=== PATIENT | female | born 1965 | race Caucasian/White ===

== ENCOUNTER → 2019-12-23 10:05 | Outpatient (CLI) | payer MEDICARE, MEDICAID, SELFPAY | PROVIDERS: PCP Family Medicine; Referring Provider Family Medicine; Visit Provider Family Medicine | DX: Z20.828 Contact with and (suspected) exposure to other viral communicable diseases (principal) | CPT/HCPCS: 87635; G2023; U0003 ==

== ENCOUNTER → 2020-01-09 08:32 | Outpatient (CLI) | payer MEDICARE, MEDICAID, SELFPAY ==
--- NOTE | 2020-01-09 08:42 | RAD_ITS ---
STUDY: AIR-CONTRAST BARIUM SWALLOW REASON FOR EXAM: Female, 54 years old. PT HAS FEELING OF SOMETHING STUCK IN UPPER THROAT, HAS BEEN ONGOING SINCE -- PT HAD THYROID SWELLING IN , BUT HAS SINCE RESOLVED, BUT SENSATION OF FOOD BEING STUCK IS STILL THERE RADIATION DOSAGE (If Supplied By Facility): CTDIvol = ( ) mGy, DLP = ( ) mGycm. Individualized dose optimization techniques were used for this CT.? FLUOROSCOPY TIME (if supplied): ( 1:08 ) minutes/seconds TECHNIQUE: Air-contrast COMPARISON: None. FINDINGS: Swallowing was initiated normally. No nasopharyngeal reflux or aspiration. No Zenker''s diverticulum noted on the lateral view. Normal peristaltic activity noted in the proximal mid and distal esophagus. There was evidence of mild GE reflux but no intraesophageal reflux or hiatal hernia noted. 13 mm barium pill passed through the esophagus without difficulty. RAD/Esophagus Dual Contrast IMPRESSION: GE reflux Electronically Signed: Yandel Jerez MD at 9:41 EDT , Service support ,
== END ==
PROVIDERS: PCP Family Medicine; Referring Provider Nurse Practitioner Adult Health; Visit Provider Nurse Practitioner Adult Health
DX: R09.89 Other specified symptoms and signs involving the circulatory and respiratory systems (principal)
CPT/HCPCS: 74221

== ENCOUNTER → 2021-01-11 09:54 | Outpatient (CLI) | payer MEDICARE, MEDICAID, SELFPAY ==
--- NOTE | 2021-01-11 11:22 | NEURO_ITS ---
NCS and/or EMG Patient Report Ordering Doctor: Augusta Phillips DATE OF SERVICE: 01/11/21 Indication: The patient reports tingling, burning and numbness on the dorsum of the left foot extending into digits 3-5. There is no associated weakness or radicular back pain. Of note, a Tinel sign was easily elicited at the fibular neck. Findings: Nerve conduction studies were performed in the left lower extremity. Some comparisons were made on the right side. The left peroneal motor study recording the extensor digitorum brevis showed a normal amplitude, normal distal latency and normal conduction velocity. No conduction block or focal slowing was present across the fibular neck. The left tibial motor study recording the abductor hallucis brevis showed a normal amplitude, normal distal latency and normal conduction velocity. The left sural sensory response showed a normal amplitude and conduction veloc ity. The left superficial peroneal sensory response showed a slightly reduced amplitude and normal conduction velocity. The left superficial peroneal sensory response showed a normal amplitude and conduction velocity, and was asymmetric with the right. Needle EMG of the left lower extremity and lumbosacral paraspinal muscles was performed. No denervation was present in any muscle. All motor unit morphology, activation, and recruitment patterns were normal. Impression: This is an abnormal study. There is electrophysiologic evidence of consistent with a non-localizing, left superficial peroneal neuropathy. A neuromuscular ultrasound of the peroneal nerve could be considered to aid in localization and investigate potential etiologies. In addition, there is no electrophysiologic evidence of a sciatic neuropathy, lumbosacral plexopathy or radiculopathy in the left lower extremity. Stephen Khalil D.O.
== END ==
PROVIDERS: PCP Family Medicine; Referring Provider Physician Assistant; Visit Provider Physician Assistant
DX: R20.0 Anesthesia of skin (principal); M79.672 Pain in left foot
CPT/HCPCS: 95886; 95909

== ENCOUNTER 2021-09-20 23:43 | Emergency (ER) | payer MEDICARE, MEDICAID, SELFPAY ==
[2021-09-20 23:43] VITALS: BP 124/98; PULSE 83; RESP 16; TEMP 36.1; O2SAT 98; BMI 25.3
[2021-09-21] MEDS: Ondansetron 4 MG/2 ML Vial IV (00:53)
[2021-09-21 00:56] LABS: Absolute Lymphocyte Count 2.82 X10^3/uL (0.83-4.51); Absolute Neutrophil Count 3.3 X10^3/uL (2.0-7.7); Basophil# 0.04 X10^3/uL; Basophil% 0.6 % (0-1); Eosinophils% 1.5 % (0-5); Hematocrit 39.1 % (37-47); Hemoglobin 13.9 g/dL (12.0-15.0); Lymphocyte # 2.82 X10^3/ul (0.83-4.51); Lymphocyte % 41.7 % (19-41); Mean Corp Hgb Conc 35.5 g/dL (32-36); Mean Corpuscular Hgb 32.2 pg (27.0-32.0); Mean Corpuscular Volume 90.5 fL (81-99); Mean Platelet Vol. 10.7 fl (6.2-12.0); Monocyte# 0.48 X10^3/uL; Monocyte% 7.1 % (0-10); NRBC Flagged by Analyzer 0 % (0-5); Neutrophil # 3.31 X10^3/uL (2.7-7.7); Platelet Count 203 K/mm3 (150-450); RBC Distribution Width CV 12.5 % (11.6-14.6); RBC Distribution Width SD 41.1 fl (35.1-43.9); Red Blood Count 4.32 M/mm3 (4.2-5.4); White Blood Count 6.8 K/mm3 (4.4-11.0)
[2021-09-21] MEDS: Morphine 4 MG/ML Syringe IV ×2 (00:56→02:06)
[2021-09-21] MEDS: Dicyclomine 20 MG/2 ML Vial IM (00:57)
[2021-09-21] MEDS: 0.9% Normal Saline 1,000 ML 999 ML IV (00:59)
[2021-09-21 01:12] LABS: AST(SGOT) 15 U/L (15-37); Alanine Aminotransfer ALT/SGPT 27 U/L (13-56); Albumin, Serum 3.8 g/dL (3.2-5.0); Alkaline Phosphatase 105 U/L (45-117); Anion Gap 5 (5-15); BUN 9 mg/dL (7-18); BUN/Creat Ratio 8.2 RATIO (10-20); Bilirubin, Direct 0.12 mg/dL (0.00-0.30); Chloride 109 mmol/L (98-107); EST Glomerular Filtration Rate 55 mL/min (>60); Est Glom Filt Rate - Afr Amer 67 mL/min (>60); Estimated Creatinine Clearance 57.52 ml/min; Globulin 3.4 g/dL (2.2-4.2); Glucose 147 mg/dL (74-106); Lipase 66 U/L (73-393); Potassium 3.5 mmol/L (3.5-5.1); Protein, Total 7.2 g/dL (6.4-8.2); Sodium Level 142 mmol/L (136-145)
[2021-09-21 01:19] LABS: Mucous, Urine 0 SEEN /hpf (<or=2+); Squamous Epithelial Cells - UA 0 SEEN /hpf (5-10)
[2021-09-21 01:20] LABS: Color, Urine Yellow (Yellow); Glucose, Dipstick Normal (Normal); Ketone-Dipstick Negative (Negative); Leukocyte Esterase-Dipstick 25 /ul (Negative); Nitrite-Dipstick Negative (Negative); Occult Blood-Urine 10 /ul (Negative); Protein-Dipstick 15 mg/dl (Negative); Specific Gravity, Urine 1.015 (1.002-1.030); Urine Bilirubin Dipstick Negative (Negative); Urine Clarity Clear (Clear); Urine Urobilinogen Normal (Normal)
[2021-09-21 01:28] LABS: Bacteria RARE /hpf (None Seen); Red Blood Cells-Urine 0-5 SEEN /hpf (0-5); White Blood Cells 0-5 SEEN /hpf (0-5)
--- NOTE | 2021-09-21 01:59 | CT_ITS ---
STUDY: CT ABDOMEN AND PELVIS WITH CONTRAST REASON FOR EXAM: Female, 55 years old. LLQ pain RADIATION DOSAGE (If Supplied By Facility): CTDIvol = ( 13.92 ) mGy, DLP = ( 873.38 ) mGycm TECHNIQUE: Transaxial images were obtained from the dome of the diaphragm to the symphysis pubis without oral contrast. IV 100mL Isovue-300 was administered. Sagittal and coronal images were reconstructed. Individualized dose optimization techniques were used for this CT. COMPARISON: None. FINDINGS: Groundglass opacities at the lung bases. The visualized portions of the heart are within normal limits. Normal liver. Normal gallbladder and extrahepatic biliary system. Normal spleen. Normal pancreas. Normal bilateral adrenal glands. Normal right kidney. Normal left kidney. Normal visualized stomach. Normal small intestine. Scattered colonic diverticulosis without discrete evidence of acute diverticulitis. Air-fluid levels in the nondilated colon. The appendix is visualized and appears normal. Mild atherosclerotic calcifications. Normal inferior vena cava. Normal retroperitoneum. Normal urinary bladder. Status post hysterectomy Normal abdominal wall. Normal osseous structures. CT/Abdomen/Pelvis W IV Cont ONLY IMPRESSION: 1. Air-fluid levels in the nondilated colon, suggestive of rapid transit state or diarrhea. 2. Scattered colonic diverticulosis without discrete evidence of acute diverticulitis. 3. Groundglass opacities at the lung bases, may be due to expiratory phase or infectious/inflammatory changes. Electronically Signed: Charles Franco MD at 2:40 EDT ,
--- NOTE | 2021-09-21 02:58 | EDS_ITS ---
HPI History of Present Illness Chief Complaint: Abd Pain Narrative Narrative: Patient is a 55-year-old female who states that over the past few hours she has noticed some pain in her lower abdomen. She states there has been some loose stool associated with this. She denies any fevers chills injury or excessive activity. She states she was told she has diverticulosis and has concerned that she may have an infection at this time and therefore comes in for evaluation [facility] Medical History (Updated 09/21/21 @ 02:[address] Modesto Soares, DO) Carpal tunnel syndrome Home Medications amitriptyline 50 mg PO DAILY 10/23/13 [History Last Taken 04/24/14] triazolam 0.5 mg ORAL QHS PRN PRN 10/23/13 [History Last Taken 04/24/14] oxycodone-acetaminophen 1 tab PO DAILY PRN PRN 09/20/21 [History Last Taken Unknown] ondansetron 4 mg PO TID PRN #21 tab 09/21/21 [Rx Last Taken Unknown] Allergy/AdvReac Type Severity Reaction Status Date / Time No Known Allergies Allergy Verified 09/20/21 23:45 Surgical History (Updated 09/20/21 @ 23:57 by Soraya Mesa) S/P removal of lung Social History Smoking Status: Never smoker ROS ROS ED Constitutional Constitutional ED: Denies chills or fever(s) ENT ENT ED: Denies sore throat Cardiovascular Cardiovascular: Denies chest pain Respiratory/Chest Respiratory/Chest: Denies cough or dyspnea Gastrointestinal Gastrointestinal: Reports abdominal pain, diarrhea and nausea; Denies vomiting Genitourinary Genitourinary ED: Denies dysuria or hematuria Musculoskeletal Musculoskeletal: Denies back pain or myalgias Integumentary Denies rash Neurologic Neurologic: Denies headache(s) Hematologic/Lymphatic Hematologic/Lymphatic: Denies easy bleeding or easy bruising EXAM Physical Exam Const Vital Signs: 09/20/21 23:43 09/21/21 03:13 Temperature 96.9 F L Temperature Source Temporal Pulse Rate 83 84 Respiratory Rate 16 16 Blood Pressure 124/98 H 116/82 H Blood Pressure Mean 106 Pulse Ox 98 98 Oxygen Delivery Method Room Air Positive well nourished and well developed General Appearance ED: well developed HEENT Reports dry mucous membranes Mouth ED: Yes dry mucous membranes Mouth: dry mucous membranes Eyes PERRL and EOMs intact bilaterally Neck supple Resp normal respiratory effort and clear to auscultation bilaterally Cardio regular rate and regular rhythm Rate: other Other Details: Radial pulses are +2-4 bilaterally are equal and symmetric GI non-distended GI Narrative: Abdomen is soft and nondistended with hyperactive bowel sounds. There is pain with palpation in the left lower quadrant but no voluntary guarding or rigidity. No pulsatile mass or fluid wave Palpation: soft Back/Spine no CVA tenderness Extremity normal to inspection Neuro oriented x3 and CN's II-XII intact bilaterally Sensorium / Orientation: alert Motor Exam: strength 5/5 throughout Psych mental status grossly normal Skin no rashes or lesions noted Skin Narrative: No overlying soft tissue changes to suggest trauma or infection MDM MDM MDM Narrative Medical decision making narrative: Patient presented to the ER afebrile with a soft nonsurgical abdomen. Basic labs were obtained secondary to complaint of abdominal pain but I did not feel the need for an emergent CT scan based on her vital signs and physical exam. Lab work revealed no clinically significant findings but on reevaluation patient was still having persistent pain in the left lower quadrant. Therefore a CT scan was added. This showed some fluid- filled intestine in the left lower quadrant consistent with her report of diar diana and pain. However there is no perforation or obstruction. On reevaluation she now reports resolution of her pain and her abdomen remains soft and nonsurgical. Therefore at this time I do not feel there is need for surgery consult or admission as her work-up is negative and her pain resolved. Patient replaced on symptomatic medications and is otherwise safe for discharge. Lab Data Attestation: I reviewed the patient's lab results. Labs: Laboratory Results - last 24 hr 09/21/21 09/21/21 09/21/21 00:00 00:00 01:15 WBC 6.8 RBC 4.32 Hgb 13.9 Hct 39.1 MCV 90.5 MCH 32.2 H MCHC 35.5 RDW Std Deviation 41.1 RDW Coeff of Maritza 12.5 Plt Count 203 MPV 10.7 Immature Gran % (Auto) 0.100 Neut % (Auto) 49.0 Lymph % (Auto) 41.7 H [place] % (Auto) 7.1 Eos % (Auto) 1.5 Baso % (Auto) 0.6 Absolute Neuts (auto) 3.3 Absolute Lymphs (auto) 2.82 Nucleated RBC % 0 Sodium 142 Potassium 3.5 Chloride 109 H Carbon Dioxide 28.0 Anion Gap 5 BUN 9 Creatinine 1.10 H Estim Creat Clear Calc 57.52 Est GFR (MDRD) Af Amer 67 Est GFR (MDRD) Non-Af 55 L BUN/Creatinine Ratio 8.2 L Glucose 147 H Calcium 9.0 Total Bilirubin 0.20 Direct Bilirubin 0.12 AST 15 ALT 27 Alkaline Phosphatase 105 Total Protein 7.2 Albumin 3.8 Globulin 3.4 Lipase 66 L Urine Color Yellow Urine Clarity Clear Urine pH 5.0 Ur Specific [place] 1.015 Urine Protein 15 H Urine Glucose (UA) Normal Urine Ketones Negative Urine Occult Blood 10 H Urine Nitrite Negative Urine Bilirubin Negative Urine Urobilinogen Normal Ur Leukocyte Esterase 25 H Urine RBC 0-5 SEEN Urine WBC 0-5 SEEN Ur Squamous Epith Cells 0 SEEN Urine Bacteria RARE Urine Mucus 0 SEEN Radiography Diagnostic Testing: Clinical Impression(s) from Imaging Studies Abdomen/Pelvis CT 09/21/21 01:59 IMPRESSION: 1. Air-fluid levels in the nondilated colon, suggestive of rapid transit state or diarrhea. 2. Scattered colonic diverticulosis without discrete evidence of acute diverticulitis. 3. Groundglass opacities at the lung bases, may be due to expiratory phase or infectious/inflammatory changes. Electronically Signed: Charles Franco MD at 2:40 EDT , Discharge Plan Triage Chief Complaint: Abd Pain ED Provider: Modesot Soares Dx/Rx/DC Orders Clinical Impression: Nonspecific abdominal pain Instructions: ED Abdominal Pain Unkn Cause Fem, Viral Gastroenteritis Prescriptions: New ondansetron 4 mg tablet,disintegrating 4 mg PO TID PRN (Reason: nausea and vomiting) Qty: 21 RF: 0 No Action triazolam 0.25 MG tablet 0.5 mg ORAL QHS PRN PRN (Reason: Insomnia) RF: 0 amitriptyline 50 MG tablet 50 mg PO DAILY RF: 0 oxycodone-acetaminophen 5-325 mg tablet 1 tab PO DAILY PRN PRN (Reason: Pain) RF: 0 Primary Care Provider: Jb Leal Referrals: Jb Leal MD [Primary Care Provider] - Activity Restrictions/Additional Instructions: Please continue all your normal medications as directed by your family doctor. If you develop increased nausea or vomiting then please fill the Zofran that was prescribed today. Please return to the ER should you have any further concerns Disposition Disposition: Home, Self Care Discharge Date/Time: 09/21/21 03:14
[2021-09-21 03:13] VITALS: BP 116/82; PULSE 84; RESP 16; O2SAT 98
== END 2021-09-21 03:14 | disposition home or self-care (01) ==
PROVIDERS: Emergency Provider Emergency Medicine; PCP Family Medicine; Visit Provider Emergency Medicine
DX: R10.9 Unspecified abdominal pain (principal); R19.7 Diarrhea, unspecified; R11.0 Nausea; K57.90 Diverticulosis of intestine, part unspecified, without perforation or abscess without bleeding
CPT/HCPCS: 74177; 80048; 80076; 81001; 83690; 85025; 96361; 96372; 96374; 96376; 99283; J7030; Q9967; A4216; J2405

== ENCOUNTER → 2021-12-17 | Outpatient (CLI) | payer MEDICARE, MEDICAID, SELFPAY ==
--- NOTE | 2021-12-17 15:31 | VDLE_ITS ---
Reason For Study: Edema RIGHT LEFT GSV is normal. GSV is normal. CFV is compressible, spontaneous, phasic, CFV is compressible, spontaneous, phasic, competent and demonstrates normal competent, and demonstrates normal augmentation. augmentation. FV is compressible, spontaneous, phasic, FV is compressible, spontaneous, phasic, competent and demonstrates normal competent and demonstrates normal augmentation. augmentation. POP V is compressible, spontaneous, phasic, POP V is compressible, spontaneous, phasic, competent and demonstrates normal competent and demonstrates normal augmentation. augmentation. T/P Trunk is compressible. T/P Trunk is compressible. PTV is compressible. PTV is compressible. RT PerV is compressible. LT PerV is compressible. Procedure This is a venous duplex using B-mode, color flow and spectral Doppler. Exam performed in department. A preliminary report was called and/or faxed to [facility]. VL/Venous Duplex US - [place] Extrem Interpretation Summary Deep veins of the lower extremities are bilaterally patent and compressible seg mentally. There is no evidence of deep vein thrombosis on either side. Valvular competence appears in tact within the proximal deep venous systems bilaterally. The great saphenous veins appear bila terally patent and compressible segmentally. Ordering Physician: Jb Leal Referring Physician: Jb Leal Performed By: Gely Phillips RVT
== END | disposition home or self-care (01) ==
LOC: CVS 15:29
PROVIDERS: PCP Family Medicine; Referring Provider Family Medicine; Visit Provider Family Medicine
DX: R60.0 Localized edema (principal)
CPT/HCPCS: 93970

== ENCOUNTER → 2022-02-08 | Outpatient (CLI) | payer MEDICARE, MEDICAID, SELFPAY ==
--- NOTE | 2022-02-08 11:30 | US_ITS ---
STUDY: SUPERFICIAL ULTRASOUND - LEFT POPLITEAL PAIN AND LEFT LOWER EXTREMITY SWELLING. REASON FOR EXAM: Female, 56 years old. L LEG SWELLING TECHNIQUE: A superficial ultrasound was performed with real-time and static church-scale imaging. COMPARISON: None. FINDINGS: Imaging of the popliteal fossa was obtained. No sonographic abnormalities seen. US/Ext Non Vasc Limited/Soft Tiss IMPRESSION: No sonographic abnormality is seen. Electronically Signed: Lcuio Andrews MD at 12:37 EDT ,
== END | disposition home or self-care (01) ==
LOC: US 11:29
PROVIDERS: PCP Family Medicine; Referring Provider Family Medicine; Visit Provider Family Medicine
DX: M79.89 Other specified soft tissue disorders (principal); M79.609 Pain in unspecified limb
CPT/HCPCS: 76882

== ENCOUNTER 2022-07-08 13:49 | Emergency (ER) | payer MEDICARE, MEDICAID, SELFPAY ==
[2022-07-08 13:51] VITALS: BP 149/96; PULSE 103; RESP 14; TEMP 36.9; O2SAT 100; BMI 28.5
--- NOTE | 2022-07-08 14:15 | EKG12_ITS ---
Test Reason : Blood Pressure : / mmHG Vent. Rate : 100 BPM Atrial Rate : 100 BPM P-R Int : 146 ms QRS Dur : 098 ms QT Int : 374 ms P-R-T Axes : 053 031 022 degrees QTc Int : 482 ms Normal sinus rhythm Nonspecific ST and T wave abnormality Abnormal ECG Confirmed by ANASTASIA ASHFORD, RUFUS ([id number]), international editorial producer JOVAN LEDEZMA ([id number]) on 07/11/2022 10:01:12 AM Referred By: HARISH Confirmed By:RUFUS OCONNOR MD
--- NOTE | 2022-07-08 14:16 | ED.VIS.CHEST ---
HPI History of Present Illness Chief Complaint: Chest Pain Narrative Narrative: Patient presents with constant fluttering in her chest for the past 3 days. It is constant she does not notice it at night unless she wakes up. She has no pleuritic component. She has no fever chills cough or congestion. She has no radiation of the pain. No back pain or tearing sensation. She did have some pain behind her left knee 1 to 2 weeks ago, this was ruled out as a DVT on an ultrasound. [facility] Medical History Carpal tunnel syndrome Home Medications amitriptyline 50 mg tablet 50 mg PO DAILY 10/23/13 [History Last Taken 04/24/14] triazolam 0.25 mg tablet 0.5 mg ORAL QHS PRN PRN Insomnia 10/23/13 [History Last Taken 04/24/14] oxycodone-acetaminophen 5 mg-325 mg tablet 1 tab PO DAILY PRN PRN Pain 09/20/21 [History Last Taken Unknown] ondansetron 4 mg disintegrating tablet 4 mg PO TID PRN nausea and vomiting #21 tabs 09/21/21 [Rx Last Taken Unknown] fluticasone propionate 50 mcg/actuation nasal spray,suspension intranasal 07/08/22 [History Last Taken Unknown] hydrochlorothiazide 50 mg tablet mg 07/08/22 [History Last Taken Unknown] Allergy/AdvReac Type Severity Reaction Status Date / Time No Known Allergies Allergy Verified 07/08/22 13:50 Surgical History S/P removal of lung Social History Smoking Status: Never smoker ROS ROS ED ROS Narrative Past medical history: Reviewed, overall unremarkable. Medications: Reviewed Social history: Noncontributory Review of systems: All systems negative except as indicated General: No fever Eyes: No visual changes ENT: No upper airway congestion, normal voice Neck: No neck pain Cardiovascular: Chest fluttering as in HPI. She feels like there are butterflies Respiratory: No shortness of breath or cough Gastrointestinal: No abdominal pain, nausea vomiting or diarrhea Genitourinary: No dysuria Musculoskeletal: Chronic low back pain and right hip pain. No change. Skin: No rash Neurological: No memory loss, confusion or any focal weakness Psych: No recent behavioral changes Hematologic: No easy bleeding or easy bruising EXAM Physical Exam Narrative Exam Narrative: Physical exam General: Well nourished, Well developed, No Acute Distress Head: Normocephalic, Atraumatic Eyes: Conjunctiva not pale ENT: Moist mucous membranes Neck: Supple, Nontender, No lymphadenopathy Cardiovascular: Regular rate rhythm no murmur. Respiratory: No distress, CTA bilaterally Abdomen: Soft, Nontender, Nondistended Back: Nontender, Normal Inspection. Negative for: CVA tenderness Extremities: Nontender, No edema Skin: Normal color, No rash Neurological: Alert, Normal Strength, Normal Sensation Psychological: Normal affect Const Vital Signs: 07/08/22 13:51 07/08/22 14:08 Temperature 98.4 F Temperature Source Temporal Pulse Rate 103 H Respiratory Rate 14 Respiratory Effort Normal Non-Labored Blood Pressure 149/96 H Blood Pressure Mean 113 Pulse Ox 100 Oxygen Delivery Method Room Air MDM MDM MDM Narrative Medical decision making narrative: A. Problems addressed Patient has chest pain and palpitations. A full cardiac work-up was done. She has an unremarkable cardiac work-up. I do not believe the patient has a PE, she has no risk factors, no pleuritic component and no shortness of breath. B. Amount and/or complexity of the data 1. CBC, CMP, troponin read interpreted by me as normal 2. Independent interpretation of test Telemetry: Sinus rhythm with a rate in the 90s on the monitor no ectopy. C. Patient was seen by me in the emergency department. I have considered the following differential diagnoses however I was able to exclude all of these through a thorough history and physical exam as well as laboratory testing: PE or any thromboembolic etiologies, myocardial infarction, aortic dissection, esophageal rupture, pneumothorax, musculoskeletal emergencies, upper abdominal pathologies such as pancreatitis, cholecystitis or choledocholithiasis, as well as ruptured bowel. I considered admission but after discussion with the patient we came to a mutual agreement that the patient is stable for discharge due to the following reasons: Heart score is: 2. Not worried about a PE, see above. Patient's exam is normal. History and physical point towards noncardiac, none thromboembolic and nonemergent etiologies. Patient has a chronic history of hypertension. She was slightly hypertensive in the ED and I told her to follow-up with her PCP. She also has chronic left knee pain, this was addressed, she is quite stressed about that. I will give her some Vistaril because there are times where she feels quite anxious. Lab Data Labs: Laboratory Results - last 24 hr 07/08/22 07/08/22 14:00 14:00 WBC 6.0 RBC 4.56 Hgb 14.2 Hct 41.8 MCV 91.7 MCH 31.1 MCHC 34.0 RDW Std Deviation 41.9 RDW Coeff of Maritza 12.5 Plt Count 212 MPV 9.9 Immature Gran % (Auto) 0.500 Neut % (Auto) 63.9 Lymph % (Auto) 28.5 [place] % (Auto) 5.9 Eos % (Auto) 0.7 Baso % (Auto) 0.5 Absolute Neuts (auto) 3.8 Absolute Lymphs (auto) 1.70 Nucleated RBC % 0 Sodium 139 Potassium 3.8 Chloride 105 Carbon Dioxide 30.0 Anion Gap 4 L BUN 7 Creatinine 0.89 Estim Creat Clear Calc 70.27 Est GFR (MDRD) Af Amer 85 Est GFR (MDRD) Non-Af 70 BUN/Creatinine Ratio 7.9 L Glucose 105 Calcium 9.2 Total Bilirubin 0.30 AST 18 ALT 27 Alkaline Phosphatase 104 Troponin I High Sens 4 Total Protein 7.4 Albumin 4.0 Globulin 3.4 Albumin/Globulin Ratio 1.2 Radiography Chest X-Ray - ED: 1 View Diagnostic Testing: Clinical Impression(s) from Imaging Studies Chest X-Ray 07/08/22 14:30 IMPRESSION: Hyperinflation. No acute abnormality is seen. Electronically Signed: Lucio Andrews MD at 14:50 EST , Chest x-ray interpreted by me is unremarkable no acute findings. Normal lungs and heart. EKG Initial EKG: Comments: Sinus rhythm with a rate of 100. Normal MO and QTc intervals. No ischemic changes. No change from April 22, 2006. Interpreted by emergency Dr. Discharge Plan Triage Chief Complaint: Chest Pain ED Provider: Kendall Temple Dx/Rx/DC Orders Clinical Impression: Chest pain, Palpitation, Hypertension, Anxiety Instructions: ED Chest Pain, Uncertain Cause Prescriptions: No Action triazolam 0.25 MG tablet 0.5 mg ORAL QHS PRN PRN (Reason: Insomnia) amitriptyline 50 MG tablet 50 mg PO DAILY oxycodone-acetaminophen 5-325 mg tablet 1 tab PO DAILY PRN PRN (Reason: Pain) Label Comments: TAKE 1 TABLET BY MOUTH TWICE DAILY NEEDED FOR PAIN. MAY TAKE AN ADDITIONAL TABLET AT NIGHT NEEDED ondansetron 4 mg tablet,disintegrating 4 mg PO TID PRN (Reason: nausea and vomiting) Qty: 21 0RF hydrochlorothiazide 50 mg tablet Label Comments: TAKE 1 TABLET BY MOUTH ONCE DAILY. HOLDING WHILE ON LASIX fluticasone propionate 50 mcg/actuation spray,suspension INTRANASAL Label Comments: USE 2 SPRAY(S) IN EACH NOSTRIL ONCE DAILY RINSE MOUTH AFTER USE Primary Care Provider: Jb Leal Referrals: Jb Leal MD [Primary Care Provider] - 3-5 Days Disposition Disposition: Home, Self Care
[2022-07-08 14:29] LABS: Absolute Neutrophil Count 3.8 X10^3/uL (2.0-7.7); Basophil# 0.03 X10^3/uL; Basophil% 0.5 % (0-1); Eosinophil# 0.04 X10^3/uL; Eosinophils% 0.7 % (0-5); Hematocrit 41.8 % (37-47); Hemoglobin 14.2 g/dL (12.0-15.0); Lymphocyte % 28.5 % (19-41); Mean Corpuscular Hgb 31.1 pg (27.0-32.0); Mean Corpuscular Volume 91.7 fL (81-99); Mean Platelet Vol. 9.9 fl (6.2-12.0); Monocyte# 0.35 X10^3/uL; Monocyte% 5.9 % (0-10); NRBC Flagged by Analyzer 0 % (0-5); Neutrophil # 3.82 X10^3/uL (2.7-7.7); Neutrophil % 63.9 % (47-70); Platelet Count 212 K/mm3 (150-450); RBC Distribution Width CV 12.5 % (11.6-14.6); RBC Distribution Width SD 41.9 fl (35.1-43.9); Red Blood Count 4.56 M/mm3 (4.2-5.4)
--- NOTE | 2022-07-08 14:30 | RAD_ITS ---
STUDY: X-RAY CHEST REASON FOR EXAM: Female, 56 years old. cp TECHNIQUE: Single AP portable view of the chest. COMPARISON: Comparison is made with prior study 04/24/2014. FINDINGS: EKG electrodes are seen. Hyperinflation scattered calcified granulomas. Lungs are clear. Normal size heart. Normal mediastinum and alesha. Normal visualized pulmonary arteries. Normal visualized aortic arch and descending thoracic aorta. There are degenerative changes of the visualized thoracic spine. Normal visualized ribs, clavicles, and shoulders. There is no demonstrated abnormality of the visualized soft tissue structures of the upper abdomen. RAD/Chest 1 View (Portable) IMPRESSION: Hyperinflation. No acute abnormality is seen. Electronically Signed: Lucio Andrews MD at 14:50 EST ,
[2022-07-08 14:47] LABS: ALB/GLOB Ratio 1.2 RATIO (0.9-2.4); AST(SGOT) 18 U/L (15-37); Alanine Aminotransfer ALT/SGPT 27 U/L (13-56); Alkaline Phosphatase 104 U/L (45-117); Anion Gap 4 (5-15); BUN 7 mg/dL (7-18); BUN/Creat Ratio 7.9 RATIO (10-20); Calcium,Total 9.2 mg/dL (8.5-10.1); Chloride 105 mmol/L (98-107); Creatinine, Serum 0.89 mg/dL (0.55-1.02); EST Glomerular Filtration Rate 70 mL/min (>60); Est Glom Filt Rate - Afr Amer 85 mL/min (>60); Estimated Creatinine Clearance 70.27 ml/min; Globulin 3.4 g/dL (2.2-4.2); Glucose 105 mg/dL (74-106); Potassium 3.8 mmol/L (3.5-5.1); Protein, Total 7.4 g/dL (6.4-8.2); Sodium Level 139 mmol/L (136-145); Troponin-I HS 4 pg/mL (3.0-54.0)
== END 2022-07-08 15:31 | disposition home or self-care (01) ==
PROVIDERS: Emergency Provider Emergency Medicine; PCP Family Medicine; Visit Provider Emergency Medicine
DX: R07.9 Chest pain, unspecified (principal); F41.9 Anxiety disorder, unspecified; M25.562 Pain in left knee; G89.29 Other chronic pain; I10 Essential (primary) hypertension
CPT/HCPCS: 71045; 80053; 84484; 85025; 93005; 99284; A4216

== ENCOUNTER → 2022-08-10 | Outpatient (CLI) | payer MEDICARE, MEDICAID, SELFPAY ==
--- NOTE | 2022-08-10 14:32 | NEURO ---
NCS and/or EMG Patient Report Ordering Doctor: Crow Gregory DATE OF SERVICE: 08/10/22 Alireza presents for electrodiagnostic testing of the left lower limb. She complains of pain in the left ankle with numbness and tingling in the left leg. She reports intermittent lower back pain. She declines testing of the left upper limb today Electrodiagnostic findings: Left peroneal motor nerve demonstrates normal distal latency, amplitude and conduction velocity. Left tibial motor response is within normal limits. Left tibial and peroneal F waves are normal. Normal left sural and superficial peroneal responses. Needle EMG testing reveals no evidence of denervation in all muscles tested with normal motor unit action potentials. Electrodiagnostic impression: This is a normal electrodiagnostic study of the left lower limb. There is no electrodiagnostic evidence for peripheral neuropathy or lumbosacral radiculopathy.
== END | disposition home or self-care (01) ==
LOC: PSN 12:32
PROVIDERS: PCP Family Medicine; Referring Provider Psychiatry & Neurology Sleep Medicine; Visit Provider Psychiatry & Neurology Sleep Medicine
DX: M79.609 Pain in unspecified limb (principal); M79.89 Other specified soft tissue disorders; M79.672 Pain in left foot; G57.82 Other specified mononeuropathies of left lower limb; G56.22 Lesion of ulnar nerve, left upper limb
CPT/HCPCS: 95886; 95909

== ENCOUNTER → 2022-11-17 | Outpatient (CLI) | payer MEDICARE, MEDICAID, SELFPAY ==
--- NOTE | 2022-11-17 10:03 | VDLE_ITS ---
Reason For Study: Left Leg Pain RIGHT LEFT CFV is compressible, spontaneous, phasic, GSV is normal. competent and demonstrates normal CFV is compressible, spontaneous, phasic, augmentation. competent, and demonstrates normal Procedure augmentation. This is a venous duplex using B-mode, color FV is compressible, spontaneous, phasic, flow and spectral Doppler. competent and demonstrates normal Exam performed in department. augmentation. The exam was diagnostic. POP V is compressible, spontaneous, phasic, competent and demonstrates normal augmentation. T/P Trunk is compressible. PTV is compressible. LT PerV is compressible. Non vascularized area of mixed echoes measuring approximately 3.31cm x 1.95cm noted in Lt Pop Fossa. VL/Venous Duplex US, Unilateral Interpretation Summary Deep veins of the left lower extremity are patent and compressible segmentally. There is no evidence of left lower extremity deep vein thrombosis. The left great saphenous vein zeina ears patent and compressible segmentally. Non vascularized area of mixed echoes measuring approximately 3.31cm x 1.95cm n oted in left popliteal fossa. Ordering Physician: Ritchie Llanos Referring Physician: Jb Leal Performed By: Zander More, RVT
--- NOTE | 2022-11-17 10:03 | VDUE_ITS ---
Reason For Study: Left Arm Pain Right Proximal Left Proximal Right subclavian vein is spontaneous, widely Left jugular vein is spontaneous, widely patent, phasic, with no intraluminal patent, phasic, with no intraluminal echogenicity noted. echogenicity noted. Left subclavian vein is spontaneous, widely patent, phasic, with no intraluminal echogenicity noted. Left Arm Left axillary vein is spontaneous, patent, phasic, competent, compressible and demonstrates augmentation. Left brachial vein is compressible. Left cephalic vein is compressible. Left basilic vein is compressible. Left Lower Arm Left radial vein is compressible. Left ulnar vein is compressible. VL/Venous Duplex US, Unilateral Interpretation Summary Deep veins of the left upper extremity are patent and compressible segmentally. There is no evidence of deep vein thrombosis. Superficial veins of the left upper extremity are patent and compressible segme ntally. There is no evidence of superficial vein thrombosis. Ordering Physician: Ritchie Llanos Referring Physician: Ritchie Llanos MD Performed By: Zander More T ???
== END | disposition home or self-care (01) ==
PROVIDERS: PCP Family Medicine; Referring Provider Surgery Trauma Surgery; Visit Provider Surgery Trauma Surgery
DX: M79.605 Pain in left leg (principal)
CPT/HCPCS: 93971

== ENCOUNTER 2022-12-22 06:58 | Day surgery (SDC) | payer MEDICARE, MEDICAID, SELFPAY ==
[2022-12-21 10:33] VITALS: BMI 28.1
[2022-12-22 07:12] LABS: Absolute Lymphocyte Count 2.51 X10^3/uL (0.83-4.51); Absolute Neutrophil Count 5.5 X10^3/uL (2.0-7.7); Basophil# 0.04 X10^3/uL; Basophil% 0.5 % (0-1); Eosinophil# 0.12 X10^3/uL; Eosinophils% 1.4 % (0-5); Hematocrit 39.2 % (37-47); Hemoglobin 14.1 g/dL (12.0-15.0); Lymphocyte # 2.51 X10^3/ul (0.83-4.51); Lymphocyte % 28.5 % (19-41); Mean Corpuscular Hgb 32.6 pg (27.0-32.0); Mean Corpuscular Volume 90.5 fL (81-99); Mean Platelet Vol. 9.8 fl (6.2-12.0); Monocyte# 0.59 X10^3/uL; Monocyte% 6.7 % (0-10); NRBC Flagged by Analyzer 0 % (0-5); Neutrophil # 5.54 X10^3/uL (2.7-7.7); Neutrophil % 62.7 % (47-70); Platelet Count 196 K/mm3 (150-450); RBC Distribution Width CV 12.7 % (11.6-14.6); RBC Distribution Width SD 42.1 fl (35.1-43.9); Red Blood Count 4.33 M/mm3 (4.2-5.4); White Blood Count 8.8 K/mm3 (4.4-11.0)
[2022-12-22 07:26] LABS: Anion Gap 7 (5-15); BUN 15 mg/dL (7-18); BUN/Creat Ratio 15.6 RATIO (10-20); Calcium,Total 9.1 mg/dL (8.5-10.1); Chloride 107 mmol/L (98-107); Creatinine, Serum 0.96 mg/dL (0.55-1.02); EST Glomerular Filtration Rate 64 mL/min (>60); Est Glom Filt Rate - Afr Amer 78 mL/min (>60); Estimated Creatinine Clearance 64.39 ml/min; Glucose 106 mg/dL (74-106); Potassium 3.1 mmol/L (3.5-5.1); Sodium Level 142 mmol/L (136-145)
--- NOTE | 2022-12-22 10:33 | PCM.OPRPT ---
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 Surgery/Procedure Performed:: IVC venogram IVUS IVC, bilateral common iliac, bilateral external iliac veins Angioplasty stent IVC Angioplasty/stent bilateral common iliac veins Angioplasty/stent right external iliac vein Description of Surgical Findings:: 61% IVC compression, 71% right common iliac vein compression, 76% left common iliac vein compression Surgeon: Ritchie Llanos Type of Anesthesia: Local and Sedation,Conscious Estimated Blood Loss (mL): 5 Description of Procedure: HPI: Patient is a 57-year-old female with bilateral lower extremity groin and proximal thigh pain as well as reflux of both the deep and superficial system of the left lower extremity. Her proximal symptoms are not consistent with the location of her reflux so she is taken now for venogram to assess for central venous compression or occlusion. Description of procedure: Upon obtaining form consent and verification correct patient procedure site patient taken the Diabetes Nurse where she was positioned prepped and draped in usual sterile fashion. Time was performed conscious sedation ministered with Versed and fentanyl. Skin was anesthetized overlying the left common femoral vein and the vessel accessed in retrograde fashion under ultrasound guidance with a micropuncture needle wire. This was then exchanged for micropuncture sheath routine injection ilio caval venogram was performed which revealed widened left common iliac and inferior vena cava with less contrast density suggesting potential compression. Through the micropuncture sheath a J-wire was advanced and the micropuncture sheath exchanged out for a 9 Maltese sheath. Through the 9 Maltese sheath intravascular sound probe was advanced and recorded pullback performed of the IVC, left common iliac vein, left external iliac vein. This revealed 61% compression of the inferior vena cava just above the confluence and 76% compression of the left common iliac vein. Overlying the right common femoral vein was anesthetized with 1% lidocaine and the vessel accessed in retrograde fashion with micropuncture needle wire under ultrasound guidance. This was then exchanged out for micropuncture sheath through which hand-injection ilio caval venogram was performed which also revealed a widened and less than contrast dense right common iliac vein. Through the micropuncture sheath a J-wire was advanced and the micropuncture sheath exchanged for a short 9 Maltese sheath. Patient was then heparinized and allowed to circulate for 3 minutes and serial dosing of heparin repeated based on ACT results. A glide advantage wire was then advanced into the inferior vena cava and intravascular sound probe advanced over the wire and recorded pullback of the IVC, right common iliac vein, right external advance performed. This confirmed the significant compression of the inferior vena cava but also revealed 71% compression of the right common iliac vein. Mcguffey that this warranted treatment of the IVC confluence as well as the bilateral common iliac veins so reference vessel sizes were obtained based on the intravascular ultrasound imaging and the length determined based on calibrated catheter. First we predilated the inferior vena cava confluence in the superior aspect of the bilateral common iliac veins with a 14 mm [employer] [place] balloon. Next a [employer] Wallstent 16 x 90 was brought in the field and prepped for manufactures instructions. This was then advanced via the right femoral access sheath and a second 16 x 90 Wallstent was then brought in the field and prepped and advanced via the left femoral access sheath. These were then deployed simultaneously in the vena cava for a distance of roughly 5 cm above the confluence in order to reach normal vena cava. After these were deployed in satisfactory position the stents were then postdilated with a 14 mm Bard [place] balloon simultaneously through each of the stents. Intravascular sound then readvanced via each of the femoral access sheath and recorded pullback of the IVC, stented segment, and the common iliac veins was performed. This revealed satisfactory resolution of the compression but given the length needed into the vena cava there was not sufficient length to treat the common iliac vein segments and have appropriate amount of anchor. Next a [employer] [place] Vena 16 x 60 was brought in field prep for home demonstration agent instructions and advanced via the right femoral access sheath. This was then deployed in position with satisfactory overlap into the Wallstent and into normal external iliac vein in order to fully treat the compressed segment and obtain satisfactory anchoring.. This was then postdilated with a 14 mm angioplasty balloon and intravascular sound recorded pullback performed satisfactory stent positioning with no residual compression, good wall apposition, and satisfactory position. Next a [employer] [place] Vena 16 x 100 was brought in field prep for home demonstration agent instructions and introduced via the left femoral access sheath and advanced in position with satisfactory overlap into the Wallstent and down to just above the internal/external and vein confluence. There is then deployed in position and postdilated with a 40 mm angioplasty balloon. Intravascular sound recorded pullback was again performed which revealed satisfactory stent positioning with good wall apposition, satisfactory positioning, satisfactory anchoring length, and no residual compression. Completion venogram confirmed brisk contrast transit across the stented segment with no extravasation or dissection. The wires and sheaths were then withdrawn and manual pressure held for 5 minutes after which satisfactory stasis was noted. Patient was then taken to the recovery room with anticipated bedrest before discharged home.
[2022-12-22 11:22] LABS: ACT Activated Clotting Time 227 sec (74-137)
[2022-12-22 11:22] LABS: ACT Activated Clotting Time 227 sec (74-137)
== END 2022-12-22 13:10 | disposition home or self-care (01) ==
PROVIDERS: PCP Family Medicine; Referring Provider Surgery Trauma Surgery; Visit Provider Surgery Trauma Surgery
DX: I87.1 Compression of vein (principal); I87.2 Venous insufficiency (chronic) (peripheral); Z86.16 Personal history of COVID-19; R60.0 Localized edema; M79.605 Pain in left leg; M71.20 Synovial cyst of popliteal space [Baker], unspecified knee
CPT/HCPCS: 36010; 36415; 37238; 37239; 37252; 37253; 75825; 76937; 80048; 85025; 85347; 99152; 99153; C1753; C1769; C1876; J7040; Q9967; C1725

== ENCOUNTER → 2023-01-12 | Outpatient (CLI) | payer MEDICARE, MEDICAID, SELFPAY ==
--- NOTE | 2023-01-12 09:05 | VDLE_ITS ---
Reason For Study: swelling Procedure LEFT This is a venous duplex using B-mode, color GSV is normal. flow and spectral Doppler. CFV is compressible, spontaneous, phasic, Exam performed in department. competent, and demonstrates normal The exam was abbreviated due to the COVID 19 augmentation. protocol. FV is compressible, spontaneous, phasic, The exam was diagnostic. competent and demonstrates normal A preliminary report was called and/or faxed augmentation. to Kristy BROWN. POP V is compressible, spontaneous, phasic, competent and demonstrates normal augmentation. T/P Trunk is compressible. PTV is compressible. LT PerV is compressible. Heterogeneous area behind the knee measuring 1.03 x 2.76 cm. Area is nonvascular. VL/Venous Duplex US, Unilateral Interpretation Summary Deep veins of the left lower extremity are patent and compressible segmentally. There is no evidence of left lower extremity deep vein thrombosis. The left great saphenous vein zeina ears patent and compressible segmentally. Heterogeneous area in popliteal fossa measuring 1.03 x 2.76 cm. Area is nonvasc ular. Ordering Physician: Livier Wagner Performed By: Bharat Vang RVT
--- NOTE | 2023-01-12 09:05 | AAVD_ITS ---
Reason For Study: S/P bilateral iliac vein stenting Inferior Vena Cava Proximal inferior vena cava measures 1.23 x 1.5 cm. in the cross-sectional axis. Proximal inferior vena cava measures 1.19 cm. in the longitudinal axis. Mid inferior vena cava measures 1.15 x 1.32 cm. in the cross-sectional axis. Mid inferior vena cava measures 1.13 cm. in the longitudinal axis. Distal inferior vena cava measures 1.17 x 1.11 cm. in the cross-sectional axis. Distal inferior vena cava measures 1.14 cm. in the longitudinal axis. The inferior vena cava has spontaneous, phasic flow throughout. Left Common Iliac Vein Left common iliac vein measures 1.39 x 1.42 cm. in the cross-sectional axis. Left common iliac vein measures 1.4 cm. in the longitudinal axis. The left common iliac vein has spontaneous, phasic flow throughout. Right Common Iliac Vein Right common iliac vein measures 1.34 x 1.29 cm. in the cross-sectional axis. Right common iliac vein measures 1.23 cm. in the longitudinal axis. The right common iliac vein has spontaneous, phasic flow throughout. R Ext Iliac vein measures 1.16 x 1.23 cm in cross sectional axis. R Ext Iliac vein measures 1.07 cm in long axis. The right external iliac vein has spontaneous, phasic flow throughout. Procedure Aorta IVC Iliac vasculature or bypass grafts [id number]. The exam was diagnostic. Exam performed in department. VL/Abd Aortic/IVC Duplex scan Interpretation Summary Patent IVC and bilateral iliac vein stents with normal waveforms and flow patte rn. Ordering Physician: Livier Wagner Performed By: Bharat Vang RVT
== END | disposition home or self-care (01) ==
LOC: CVS 09:01
PROVIDERS: PCP Family Medicine; Referring Provider Physician Assistant; Visit Provider Physician Assistant
DX: I87.1 Compression of vein (principal); R60.0 Localized edema; M79.605 Pain in left leg
CPT/HCPCS: 93971; 93978

== ENCOUNTER → 2023-11-20 | Outpatient (CLI) | payer MEDICARE, MEDICAID, SELFPAY ==
--- NOTE | 2023-11-20 08:01 | AAVD_ITS ---
Reason For Study: HX BLE CIV Stents / BLE Pain Inferior Vena Cava Proximal inferior vena cava measures 1.32 x 1.58 cm. in the cross-sectional axis. Proximal inferior vena cava measures 1.46 cm. in the longitudinal axis. Mid inferior vena cava measures 1.12 x 1.43 cm. in the cross-sectional axis. Mid inferior vena cava measures 1.30 cm. in the longitudinal axis. Unable to acquire accurate cross sectional dist IVC image due to bowel gas. Distal inferior vena cava measures 1.20 cm. in the longitudinal axis. The inferior vena cava has spontaneous, phasic flow throughout. Left Common Iliac Vein CIV Prox Trans - 1.18cm x 1.15cm CIV Prox Long - Non Visualized CIV Dist Trans - 1.56cm x 1.49cm CIV Dist Long - 1.54cm Stent Noted throughout. The left common iliac vein has spontaneous, phasic flow throughout. Right Common Iliac Vein CIV Prox Trans - 1.14cm x 1.15cm CIV Prox Long - 1.17cm CIV Dist Trans - 1.65cm x 1.69cm CIV Dist Long - 1.61cm Stent Noted throughout. The right common iliac vein has spontaneous, phasic flow throughout. Procedure Aorta IVC Iliac vasculature or bypass grafts [id number]. The exam was diagnostic. Exam performed in department. VL/Abd Aortic/IVC Duplex scan Interpretation Summary Patent IVC and bilateral iliac vein stents with normal venous flow pattern Ordering Physician: Livier Peraza Referring Physician: Jb Leal Performed By: Zander More, RVT
== END | disposition home or self-care (01) ==
PROVIDERS: PCP Family Medicine; Referring Provider Surgery Trauma Surgery; Visit Provider Surgery Trauma Surgery
DX: I87.1 Compression of vein (principal); I87.2 Venous insufficiency (chronic) (peripheral); R60.0 Localized edema
CPT/HCPCS: 93978

== ENCOUNTER → 2023-12-11 | Outpatient (CLI) | payer MEDICARE, MEDICAID, SELFPAY ==
--- NOTE | 2023-12-11 13:06 | VDLE_ITS ---
Reason For Study: RLE Swelling RIGHT LEFT EIV appears spontaneous and phasic. EIV appears spontaneous and phasic. CFV is compressible, spontaneous, phasic, CFV is compressible, spontaneous, phasic, competent and demonstrates normal competent, and demonstrates normal augmentation. augmentation. FV is compressible, spontaneous, phasic, competent and demonstrates normal augmentation. POP V is compressible, spontaneous, phasic, competent and demonstrates normal augmentation. T/P Trunk is compressible. PTV is compressible. RT PerV is compressible. SFJ is competent and measures 0.78 cm. GSV proximal thigh measures 0.34 X 0.39 cm. GSV at knee measures 0.33 x 0.38 cm. GSV above knee is competent. GSV below knee is INCOMPETENT for greater than 0.5 seconds. SSV proximal calf is competent and measures 0.33 x 0.41 cm. Procedure This is a venous duplex using B-mode, color flow and spectral Doppler. Exam performed in department. The exam was diagnostic. VL/Venous Duplex US, Unilateral Interpretation Summary Deep veins of the right lower extremity are patent and compressible segmentally . There is no evidence of right lower extremity deep vein thrombosis. The right great sapheno us vein appears patent and compressible segmentally. Positive for reflux in the right great saphenous vein below the knee. Ordering Physician: Livier Peraza Referring Physician: Jb Leal Performed By: Zander More RVT and Student
== END | disposition home or self-care (01) ==
LOC: CVS 13:05
PROVIDERS: PCP Family Medicine; Referring Provider Physician Assistant; Visit Provider Physician Assistant
DX: M79.89 Other specified soft tissue disorders (principal)
CPT/HCPCS: 93971

== ENCOUNTER → 2024-07-16 | Outpatient (CLI) | payer MEDICARE, MEDICAID, SELFPAY ==
--- NOTE | 2024-07-16 09:56 | NEURO ---
NCS and/or EMG Patient Report Ordering Doctor: Richard Beasley DATE OF SERVICE: 07/16/24 Clinical Summary: 58 year old female patient with symptoms of pressure/pain running down the left leg from the hip down to the foot. Nerve Conduction Studies Summary: Nerve conduction studies of the left lower extremity were within normal ranges of the patient's age. Needle Examination Summary: Needle examination of select muscles of the left lower extremity was normal. Impression: This is a normal study. There is no electrodiagnostic evidence of a left lumbosacral radiculopathy or peroneal mononeuropathy. Multi Select Codes Neurology Neurology Interp Codes: 29794-40 Musc test done w/n test comp (interp) (1) and 04111-44 Nrv cndj tst 3-4 studies (interp)
== END | disposition home or self-care (01) ==
PROVIDERS: PCP Family Medicine
DX: M25.562 Pain in left knee (principal); G89.29 Other chronic pain; R20.0 Anesthesia of skin; M17.12 Unilateral primary osteoarthritis, left knee; R20.2 Paresthesia of skin
CPT/HCPCS: 95886; 95908

== ENCOUNTER → 2024-12-24 | Outpatient (CLI) | payer MEDICARE, MEDICAID, SELFPAY ==
--- NOTE | 2024-12-24 09:04 | AAVD_ITS ---
Reason For Study Reason For Study: S/P Bilateral iliac vein stenting Inferior Vena Cava Proximal inferior vena cava measures 1.28 x 2.13 cm. in the cross-sectional axis. Proximal inferior vena cava measures 1.10 cm. in the longitudinal axis. Mid inferior vena cava measures 1.21 x 1.68 cm. in the cross-sectional axis. Mid inferior vena cava measures 1.26 cm. in the longitudinal axis. Distal inferior vena cava measures 1.37 x 2.84 cm. in the cross-sectional axis. Distal inferior vena cava measures 2.20 cm. in the longitudinal axis. Stents noted in the distal IVC. Right stent measures 1.31 x 1.24 x 1.41 cm. Left stent measures 1.10 x 1.20 x 1.42 cm. The inferior vena cava has spontaneous, phasic flow throughout. Left Common Iliac Vein Left common iliac vein measures 1.28 x 1.23 cm. in the cross-sectional axis. Left common iliac vein measures 1.39 cm. in the longitudinal axis. Stent noted throughout. The left common iliac vein has spontaneous, phasic flow throughout. Right Common Iliac Vein Right common iliac vein measures 1.33 x 1.34 cm. in the cross-sectional axis. Right common iliac vein measures 1.33 cm. in the longitudinal axis. Stent noted throughout. The right common iliac vein has spontaneous, phasic flow throughout. Procedure Aorta IVC Iliac vasculature or bypass grafts [id number]. Exam performed in department. VL/Abd Aortic/IVC Duplex scan Interpretation Summary Patent inferior vena cava and bilateral iliac vein stents with normal venous fl ow pattern Ordering Physician: Livier Peraza Referring Physician: Jb Leal Performed By: Gely Phillips RVT
== END | disposition home or self-care (01) ==
LOC: CVS 09:01
PROVIDERS: PCP Family Medicine; Referring Provider Physician Assistant; Visit Provider Physician Assistant
DX: I87.1 Compression of vein (principal); I87.2 Venous insufficiency (chronic) (peripheral)
CPT/HCPCS: 93978